=== PATIENT | female | born 1990 | race Caucasian/White ===

== ENCOUNTER → 2017-10-10 | Outpatient (REF) | payer BC | LOC: M WUC 10-11 09:35 | DX: R30.0 Dysuria (principal) | CPT/HCPCS: 87186 ==

== ENCOUNTER → 2019-06-08 | Outpatient (REF) | payer BC ==
[2019-06-08 17:51] LABS: HEMATOCRIT 38.8 % (36.0-47.0); MEAN CORPUSCULAR HEMOGLOBIN 30.7 pg (27.0-33.0); MEAN CORPUSCULAR HGB CONC 33.5 g/dl (32.0-36.5); MEAN CORPUSCULAR VOLUME 91.7 fl (80.0-96.0); PLATELET COUNT, AUTOMATED 212 10^3/uL (150-450); RED BLOOD COUNT 4.23 10^6/uL (4.00-5.40); WHITE BLOOD COUNT 8.7 10^3/uL (4.0-10.0)
[2019-06-09 11:31] LABS: HIV 1&2 SCREEN CENTAUR NEGATIVE (NEGATIVE); RUBELLA IgG QUALITATIVE IMMUNE (IMMUNE)
== END ==
LOC: M PLALAB 14:55
PROVIDERS: ATTEND Advanced Practice Midwife
DX: Z34.01 Encounter for supervision of normal first pregnancy, first trimester (principal); Z3A.00 Weeks of gestation of pregnancy not specified

== ENCOUNTER → 2019-07-07 | Outpatient (REF) | payer BC ==
[2019-07-07 21:02] LABS: CHLAMYDIA DNA AMPLIFICATION NEGATIVE (NEGATIVE); GC DNA AMPLIFICATION NEGATIVE (NEGATIVE)
== END ==
LOC: M SFHCWAGY 17:09
PROVIDERS: ATTEND Advanced Practice Midwife
DX: Z34.01 Encounter for supervision of normal first pregnancy, first trimester (principal)

== ENCOUNTER → 2019-08-28 | Outpatient (CLI) | payer BC ==
--- NOTE | 2019-09-01 08:57 | REP ---
Clinical: Anatomical evaluation. Comparison: None. Findings: Examination demonstrates a single live intrauterine in variable presentation. motion is identified by technologist. Placenta is noted anterior and grade I without evidence for placenta previa or abruption. Amniotic fluid volume is normal. Cervix measures 3.4 cm in length and appears closed. No evidence for nuchal cord. Gestational age by current measurements 18 weeks 2 days with LOREN 01/27/2020 . FHR equals 146 beats per minute. BPD 3.8 cm 17 weeks 4 days HC 15.1 cm 18 weeks 1 day AC 13.2 cm 18 weeks 5 days FL 2.9 cm 18 weeks 5 days HL 2.7 cm 18 weeks 5 days HC/AC ratio 1.14 Estimated weight 247 grams ( 60th percentile). Anatomical assessment demonstrates normal structures including cranium, choroid plexus, cavum, cerebellum/posterior fossa, facial features, lungs, four-chamber heart/ventricular outflow tracts, diaphragm, stomach, cord insertion/three-vessel cord, kidneys/bladder, spine, and extremities. Impression: Single live intrauterine in variable presentation demonstrating appropriate estimated weight. Anatomical assessment is complete and normal. No gross abnormalities are identified. Electronically Signed by Sage Wilson MD 08/28/2019 05:28 P
== END ==
LOC: M WHC 14:49
PROVIDERS: ATTEND Specialist
DX: Z36.3 Encounter for antenatal screening for malformations (principal); Z3A.18 18 weeks gestation of pregnancy

== ENCOUNTER → 2019-10-27 | Outpatient (CLI) | payer BC ==
[2019-10-27 15:36] LABS: HEMATOCRIT 34.5 % (36.0-47.0); HEMOGLOBIN 11.8 g/dl (12.0-15.5); MEAN CORPUSCULAR HEMOGLOBIN 32.8 pg (27.0-33.0); MEAN CORPUSCULAR HGB CONC 34.2 g/dl (32.0-36.5); MEAN CORPUSCULAR VOLUME 95.8 fl (80.0-96.0); PLATELET COUNT, AUTOMATED 204 10^3/uL (150-450); WHITE BLOOD COUNT 10.8 10^3/uL (4.0-10.0)
== END ==
LOC: M LAB 07:35
PROVIDERS: ATTEND Obstetrics & Gynecology
DX: Z34.92 Encounter for supervision of normal pregnancy, unspecified, second trimester (principal); Z3A.00 Weeks of gestation of pregnancy not specified

== ENCOUNTER → 2019-12-09 | Outpatient (REF) | payer BC | LOC: M SFHCWAGY 17:07 | PROVIDERS: ATTEND Advanced Practice Midwife | DX: Z34.03 Encounter for supervision of normal first pregnancy, third trimester (principal) ==

== ENCOUNTER → 2019-12-23 | Outpatient (REF) | payer BC | LOC: M SFHCWAGY 16:58 | PROVIDERS: ATTEND Obstetrics & Gynecology | DX: Z3A.35 35 weeks gestation of pregnancy (principal) ==

== ENCOUNTER 2020-01-20 02:11 | Inpatient (IN) | payer BC ==
[~2020-01-20] VITALS: Ht 162.6 cm; Wt 75.2 kg
[2020-01-20] VITALS (35 sets, daily range): BP systolic 95–174; BP diastolic 52–80
[2020-01-20] MEDS ORDERED: LR 1,000 ML IV SCH ×2 (02:38→07:57)
[2020-01-20] MEDS ORDERED: LACTATED RINGER'S 1000 ML IV STA (02:38)
[2020-01-20 02:50] LABS: HEMATOCRIT 35.8 % (36.0-47.0); HEMOGLOBIN 11.8 g/dl (12.0-15.5); MEAN CORPUSCULAR HEMOGLOBIN 29.9 pg (27.0-33.0); MEAN CORPUSCULAR VOLUME 90.6 fl (80.0-96.0); PLATELET COUNT, AUTOMATED 263 10^3/uL (150-450); RED BLOOD COUNT 3.95 10^6/uL (4.00-5.40); WHITE BLOOD COUNT 17.2 10^3/uL (4.0-10.0)
[2020-01-20] MEDS ORDERED: PREN29CH2 PO (02:56)
--- NOTE | 2020-01-20 03:02 | HPEPDOC ---
Obstetrical History & Physical General Date of Admission Jan 20, 2020 at 02:29 History of Present Illness 29-year-old G1, P0 at 39+6 weeks gestation. Presents with frequent, painful [place] contractions over the past several hours. Denies any loss of fluid or vaginal bleeding. Reports regular movement. 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 BREAST: . ABDOMEN: Gravid and non-tender to touch. FETUS: Is vertex (VTX) by sterile vaginal examination (SVE), fetus is vertex (VTX) by [place]. HEART RATE: Regular rate and rhythm. LUNGS: Clear to auscultation (CTA). EXTREMITIES: No edema. No clonus. Deep tendon reflexes (DTRs) + . Laboratory Data 24H LABS Laboratory Tests 2 01/20/20 02:34: Serology Scanned Report Hepatitis B Testing Vaginal Examination Dilation: 5 cm Effacement: 100% Station: -1, 0 Cervical Consistency: Soft Cervical Position: Anterior Presentation: Cephalic presentation (Membranes intact) Assessment Heart Rate (FHR): 135 Variability: Moderate Accelerations: Positive Decelerations: None Tocometer Contractions: Yes Frequency: every 2-5 min. Assessment/Plan Assessment 29-year old at 39+6 weeks gestation. Dx: Active labor at term. Reassuring maternal and status. Plan Admit and orient. Routine labs/orders Augment labor with Pitocin as needed Mode of delivery plan: ; as indicated. BEVERLEY SMITH DO Jan 20, 2020 03:02
[2020-01-20] MEDS ORDERED: FENTANYL 2MCG/ML ROPIVACAINE 0.2% IN 0.9% NACL 100ML IVBAG As Ordered ONE (03:56)
[2020-01-20] MEDS ORDERED: FENTANYL/ROPIVACAINE/NACL BAG 100 ML EPIDURAL SCH (05:00)
[2020-01-20] MEDS ORDERED: EPIDURAL/PCA KEYS XX PRN (05:00)
[2020-01-20] MEDS ORDERED: LACTATED RINGER'S 1000 ML IV PRN (05:00)
[2020-01-20] MEDS ORDERED: NALOXONE INJ 0.4MG/1ML VIAL (J2310 PER 1MG) IV PRN (05:00)
[2020-01-20] MEDS ORDERED: ONDANSETRON 4MG/2ML VIAL IV PRN (05:00)
[2020-01-20] MEDS ORDERED: EPIDURAL COMMENT XX SCH (05:00)
[2020-01-20] MEDS ORDERED: diphenhydrAMINE 50MG/ML VIAL (J1200) IV PRN (05:00)
[2020-01-20] MEDS ORDERED: ePHEDrine SULFATE 25 MG/5 ML(5MG/ML) SYRINGE IV PRN (05:00)
[2020-01-20] MEDS ORDERED: REFRIGERATOR IV KEYS XX PRN (05:00)
[2020-01-20] MEDS ORDERED: OXYTOCIN DRIP 30 UNITS in IV 1 EA IV SCH ×2 (08:00→11:47)
[2020-01-20] MEDS ORDERED: IBUPROFEN 600MG TAB PO PRN (12:00)
[2020-01-20] MEDS ORDERED: DOCUSATE SODIUM 100 MG CAP PO PRN (12:00)
[2020-01-20] MEDS ORDERED: MEASLES,MUMPS,RUBELLA VACCINE INJ (MMR-II) (90707) SC SCH (12:00)
[2020-01-20] MEDS ORDERED: ACETAMINOPHEN TAB 650MG DOSE (2X325MG) PO PRN (12:00)
[2020-01-20] MEDS ORDERED: DIBUCAINE 1% OINTMENT 30GM TOP PRN (12:00)
[2020-01-20] MEDS ORDERED: RHOGAM 300 MCG (1500 IU) INJ (J2790) IM SCH (12:00)
[2020-01-20] MEDS ORDERED: ACETAMINOPHEN 500 MG TAB PO PRN (12:00)
[2020-01-20] MEDS ORDERED: METHYLERGONOVINE MALEATE 0.2 MG TAB PO PRN (12:00)
[2020-01-20] MEDS: IBUPROFEN 800 MG TAB PO PRN (17:49)
[2020-01-21] MEDS: IBUPROFEN 800 MG TAB PO PRN ×2 (05:53→14:45)
[2020-01-21 06:00] VITALS: BP 107/64
[2020-01-21] MEDS: PRENATAL VITAMINS CHEWABLE TABLET PO SCH (07:37)
[2020-01-21 18:00] VITALS: BP 118/73
[2020-01-22 06:00] VITALS: BP 90/54
--- NOTE | 2020-01-22 07:11 | DS.PDOC ---
Discharge Summary General Date of Admission Jan 20, 2020 at 02:29 Date of Discharge Jan 22, 2020 Discharge Summary PROCEDURES PERFORMED DURING STAY: spontaneous vaginal delivery ADMITTING DIAGNOSES: 1. active labor at term DISCHARGE DIAGNOSES: 1. active labor at term, delivered COMPLICATIONS/CHIEF COMPLAINT: LABOR. HISTORY OF PRESENT ILLNESS/HOSPITAL COURSE: Toña is a 29yo [id number] s/p uncomplicated at 39w6d, delivering at 1030 on 01/19, after presenting in active labor. She has had a benign course. At time of discharge, vitals are wnl, she is afebrile. There is no evidence of infection and she is hemodynamically stable. DISCHARGE MEDICATIONS: Please see below. ALLERGIES: Please see below. PHYSICAL EXAMINATION ON DISCHARGE: VITAL SIGNS: Please see below. GENERAL: patient resting comfortably Abdomen: soft, NTTP, fundus firm at u-2cm Extremities: no pain with palpation of calves LABORATORY DATA: Please see below. ACTIVITY: As tolerated, vaginal rest 6 weeks, no heavy lifting DIET: regular DISPOSITION: home DISCHARGE PLAN/INSTRUCTIONS: 1. Discharge home today 2. Routine visit in 6 weeks 3. Regular diet 4. Undecided on contraception, will readdress at 6wk PP visit 5. Discussed return precautions at length DISCHARGE CONDITION: Stable TIME SPENT ON DISCHARGE: Greater than 20 minutes. Vital Signs/I&Os Vital Signs Date Time Temp Pulse Resp B/P (MAP) Pulse Ox O2 Delivery O2 Flow Rate FiO2 01/21/20 18:00 97.4 65 18 118/73 (88) 01/21/20 06:00 97 Room Air I&O- Last 24 Hours up to 6 AM 01/21/20 06:00 Intake Total 3914.8 ml Output Total 1650 ml Balance 2264.8 ml Discharge Medications Scheduled No115/Iron/Folic Acid ( 19 Chewable Tablet) 1 Each Tab.chew, 1 TAB PO DAILY, (Reported) Allergies Coded Allergies: bee venom protein (honey bee) (Verified Allergy, Severe, anaphylaxis, 01/20/20) Vidya Jones MD Jan 21, 2020 19:34
--- NOTE | 2020-01-22 07:14 | IPNPDOC ---
Progress Note Date of Service: Jan 22, 2020 Day#: 2 Progress Note PPD 2 SUBJECT: Toña is a 29yo [id number] s/p uncomplicated at 39w6d, delivering at 1030 on 01/19, after presenting in active labor, doing well day # 2. She has been ambulating, voiding spontaneously without issue and tolerating regular diet. Breast feeding without issue. Reports lochia is like a normal period. No f/c/n/v/CP/SOB. OBJECTIVE: VITAL SIGNS: Within normal limits, afebrile. Alert and oriented times three. Abdomen: Fundus firm at U-2. Soft, NTTP. Extremities: no pain with palpation of calves ASSESSMENT: Toña is a 29yo [id number] s/p uncomplicated at 39w6d, delivering at 1030 on 01/19, after presenting in active labor, doing well day # 2. Vitals within normal limits, afebrile, hemodynamically stable with no evidence of infection. PLAN: 1. Discharge to home today. 2. Tylenol and Motrin for pain. 3. Encourage breast feeding and ambulation. 4. Condoms for contraception 5. Routine PP visit in 6 weeks in clinic. 6. Discussed return precautions at length. Vidya Jones MD VS, I&O, 24H, Fishbone Vital Signs/I&O Vital Signs Date Time Temp Pulse Resp B/P (MAP) Pulse Ox O2 Delivery O2 Flow Rate FiO2 01/22/20 06:00 97.8 67 18 90/54 (66) 01/21/20 06:00 97 Room Air Vidya Jones MD Jan 22, 2020 07:14
[2020-01-22] MEDS ORDERED: IBUP80TA PO (07:18)
[2020-01-22] MEDS ORDERED: DOCU100C16 PO (07:18)
[2020-01-22] MEDS: PRENATAL VITAMINS CHEWABLE TABLET PO SCH (07:55)
[2020-01-22] MEDS: IBUPROFEN 800 MG TAB PO PRN (07:55)
== END 2020-01-22 12:05 | disposition home or self-care (01) | DRG 560 ==
LOC: M LDO 02:11 → M LDI 02:29 → M OBS 14:03
PROVIDERS: ADMIT Obstetrics & Gynecology; ATTEND Obstetrics & Gynecology
PROC: 10E0XZZ Delivery of Products of Conception, External Approach (ICD-10-PCS; principal; 2020-01-20)
PROC: 0KQM0ZZ Repair Perineum Muscle, Open Approach (ICD-10-PCS; 2020-01-20)
DX: O32.6XX0 Maternal care for compound presentation, not applicable or unspecified (principal); O70.1 Second degree perineal laceration during delivery; Z37.0 Single live birth; Z3A.39 39 weeks gestation of pregnancy

== ENCOUNTER → 2021-02-16 | Outpatient (CLI) | payer BC ==
[~2021-02-16] MED LIST: DOCU100C16 PO; IBUP80TA PO; PREN29CH2 PO
[2021-02-16 09:44] LABS: BASO # 0.1 10^3/uL (0.0-0.2); BASO % 0.9 % (0.0-1.0); EOS # 0.1 10^3/uL (0.0-0.5); EOS % 2.2 % (0.0-3.0); HEMATOCRIT 38.4 % (36.0-47.0); HEMOGLOBIN 12.4 g/dl (12.0-15.5); LYMPH # 1.5 10^3/uL (1.5-5.0); LYMPH % 27.6 % (24.0-44.0); MEAN CORPUSCULAR HEMOGLOBIN 29.5 pg (27.0-33.0); MEAN CORPUSCULAR HGB CONC 32.3 g/dl (32.0-36.5); MEAN CORPUSCULAR VOLUME 91.4 fl (80.0-96.0); MONO # 0.4 10^3/uL (0.0-0.8); MONO % 7.7 % (2.0-8.0); NEUTROPHILS # 3.4 10^3/uL (1.5-8.5); NEUTROPHILS % 61.2 % (36.0-66.0); PLATELET COUNT, AUTOMATED 250 10^3/uL (150-450); WHITE BLOOD COUNT 5.5 10^3/uL (4.0-10.0)
[2021-02-16 10:10] LABS: BLOOD UREA NITROGEN 15 MG/DL (7-18); CALCIUM LEVEL 9.1 MG/DL (8.5-10.1); CARBON DIOXIDE LEVEL 28 MEQ/L (21-32); CHLORIDE LEVEL 107 MEQ/L (98-107); CHOLESTEROL LEVEL 173 MG/DL (<200); CHOLESTEROL RISK RATIO 1.943 (<5); CREATININE FOR GFR 0.85 MG/DL (0.55-1.30); GLOMERULAR FILTRATION RATE > 60.0 (>60); GLUCOSE, FASTING 79 MG/DL (70-100); HDL CHOLESTEROL 89 MG/DL (>40); LDL CHOLESTEROL 78 MG/DL (<100); NON-HDL-C 84 MG/DL; POTASSIUM SERUM 4.2 MEQ/L (3.5-5.1); SODIUM LEVEL 139 MEQ/L (136-145); TRIGLYCERIDES LEVEL 30 MG/DL (<150)
== END ==
LOC: M LAB 09:11
PROVIDERS: ATTEND Registered Nurse
DX: Z00.00 Encounter for general adult medical examination without abnormal findings (principal); Z13.220 Encounter for screening for lipoid disorders

== ENCOUNTER → 2022-07-06 | Outpatient (REF) | payer OTHER | LOC: M LAB REF 12:52 | PROVIDERS: ATTEND Nurse Practitioner Family | DX: N39.0 Urinary tract infection, site not specified (principal) ==

== ENCOUNTER → 2023-01-03 | Outpatient (CLI) | payer OTHER ==
[~2023-01-03] MED LIST changes: +ISOVUE-370 76% 100ML VIAL As Ordered ONE
== END ==
LOC: M RADPRO 12:31
PROVIDERS: ATTEND Obstetrics & Gynecology
DX: Z31.69 Encounter for other general counseling and advice on procreation (principal)
CPT/HCPCS: 58340; 74740; Q9967

== ENCOUNTER → 2023-01-08 | Outpatient (CLI) | payer OTHER ==
[~2023-01-08] MED LIST changes: -ISOVUE-370 76% 100ML VIAL As Ordered ONE
== END ==
LOC: M WHC 14:31
PROVIDERS: ATTEND Obstetrics & Gynecology
DX: Z31.69 Encounter for other general counseling and advice on procreation (principal); N83.201 Unspecified ovarian cyst, right side

== ENCOUNTER → 2023-05-17 | Outpatient (CLI) | payer OTHER | LOC: M LAB 17:55 | PROVIDERS: ATTEND Obstetrics & Gynecology | DX: O20.9 Hemorrhage in early pregnancy, unspecified (principal) ==

== ENCOUNTER → 2023-10-29 | Outpatient (CLI) | payer OTHER ==
[2023-10-29 14:00] LABS: HEMATOCRIT 37.5 % (36.0-47.0); HEMOGLOBIN 12.6 g/dl (12.0-15.5); MEAN CORPUSCULAR HEMOGLOBIN 30.9 pg (27.0-33.0); MEAN CORPUSCULAR HGB CONC 33.6 g/dl (32.0-36.5); MEAN CORPUSCULAR VOLUME 91.9 fl (80.0-96.0); PLATELET COUNT, AUTOMATED 228 10^3/uL (150-450); RED BLOOD COUNT 4.08 10^6/uL (4.00-5.40); WHITE BLOOD COUNT 11.2 10^3/uL (4.0-10.0)
[2023-10-29 15:00] LABS: HIV 1&2 SCREEN NEGATIVE (NEGATIVE)
[2023-10-29 15:05] LABS: GC DNA AMPLIFICATION NEGATIVE (NEGATIVE)
[2023-10-29 15:08] LABS: HEPATITIS C VIRUS ABY INDEX < 0.02 INDEX (<0.8)
== END ==
LOC: M PLALAB 09:19
PROVIDERS: ATTEND Nurse Practitioner Women's Health
DX: Z34.80 Encounter for supervision of other normal pregnancy, unspecified trimester (principal)

== ENCOUNTER → 2023-11-29 | Outpatient (REF) | payer OTHER | LOC: M PLALAB 15:54 | PROVIDERS: ATTEND Advanced Practice Midwife | DX: Z34.82 Encounter for supervision of other normal pregnancy, second trimester (principal) ==

== ENCOUNTER → 2023-12-27 | Outpatient (CLI) | payer OTHER | LOC: M WHC 12:57 | PROVIDERS: ATTEND Advanced Practice Midwife | DX: Z34.82 Encounter for supervision of other normal pregnancy, second trimester (principal); Z3A.20 20 weeks gestation of pregnancy ==

== ENCOUNTER → 2024-02-12 | Outpatient (CLI) | payer OTHER ==
[2024-02-12 15:25] LABS: HEMATOCRIT 32.8 % (36.0-47.0); HEMOGLOBIN 11.1 g/dl (12.0-15.5); MEAN CORPUSCULAR HEMOGLOBIN 31.3 pg (27.0-33.0); MEAN CORPUSCULAR HGB CONC 33.8 g/dl (32.0-36.5); MEAN CORPUSCULAR VOLUME 92.4 fl (80.0-96.0); PLATELET COUNT, AUTOMATED 225 10^3/uL (150-450); RED BLOOD COUNT 3.55 10^6/uL (4.00-5.40); WHITE BLOOD COUNT 11.8 10^3/uL (4.0-10.0)
[2024-02-12 15:28] LABS: GLUCOSE CHALLENGE TEST 1 HOUR 109 MG/DL (LESS THAN 140)
[2024-02-12 16:03] LABS: HIV 1&2 SCREEN NEGATIVE (NEGATIVE)
[2024-02-12 16:10] LABS: HEPATITIS C VIRUS ABY INDEX < 0.02 INDEX (<0.8)
[2024-02-12 16:46] LABS: GC DNA AMPLIFICATION NEGATIVE (NEGATIVE)
== END ==
LOC: M PLALAB 12:56
PROVIDERS: ATTEND Nurse Practitioner Family
DX: Z34.82 Encounter for supervision of other normal pregnancy, second trimester (principal)

== ENCOUNTER → 2024-04-21 | Outpatient (REF) | payer OTHER | LOC: M SFHCWAGY 09:40 | PROVIDERS: ATTEND Obstetrics & Gynecology | DX: Z36.85 Encounter for antenatal screening for Streptococcus B (principal); Z3A.36 36 weeks gestation of pregnancy ==

== ENCOUNTER 2024-05-08 09:15 | Inpatient (IN) | payer OTHER ==
[~2024-05-08] VITALS: Ht 162.6 cm; Wt 77.9 kg
[2024-05-08] VITALS (35 sets, daily range): BP systolic 97–139; BP diastolic 52–85; O2SAT 95
[2024-05-08] MEDS ORDERED: HOME MED LIST COMPLETE! XX SCH (09:55)
[2024-05-08 10:33] LABS: HEMATOCRIT 34.1 % (36.0-47.0); HEMOGLOBIN 11.7 g/dl (12.0-15.5); MEAN CORPUSCULAR HGB CONC 34.3 g/dl (32.0-36.5); MEAN CORPUSCULAR VOLUME 90.5 fl (80.0-96.0); PLATELET COUNT, AUTOMATED 230 10^3/uL (150-450); RED BLOOD COUNT 3.77 10^6/uL (4.00-5.40); WHITE BLOOD COUNT 10.9 10^3/uL (4.0-10.0)
[2024-05-08 10:57] LABS: HEPATITIS B SURFACE ANTIBODY POSITIVE (POSITIVE)
[2024-05-08] MEDS ORDERED: CARBOPROST TROMETHAMINE 250 MCG/ML AMP IM PRN (11:20)
[2024-05-08] MEDS ORDERED: METHYLERGONOVINE MALEATE 0.2MG/ML 1ML VIAL IM PRN (11:20)
[2024-05-08] MEDS ORDERED: TRANEXAMIC ACID INJection 1,000 MG in NS 100 ML IV PRN (11:20)
[2024-05-08] MEDS ORDERED: LIDOCAINE 1% MDV 20ML VIAL INFIL PRN (11:20)
[2024-05-08] MEDS ORDERED: OXYTOCIN DRIP 30 UNITS in IV 1 EA IV PRN (11:20)
[2024-05-08 11:22] LABS: HIV 1&2 SCREEN NEGATIVE (NEGATIVE)
[2024-05-08 11:29] LABS: HEPATITIS C VIRUS ABY INDEX 0.02 INDEX (<0.8)
[2024-05-08] MEDS: OXYTOCIN DRIP 30 UNITS in IV 1 EA IV SCH ×2 (11:54→20:15)
[2024-05-08] MEDS ORDERED: LR 500 ML IV PRN (15:20)
[2024-05-08] MEDS ORDERED: diphenhydrAMINE 50MG/ML VIAL IV PRN (15:20)
[2024-05-08] MEDS ORDERED: ePHEDrine SULFATE 25 MG/5 ML(5MG/ML) SYRINGE IVP PRN (15:20)
[2024-05-08] MEDS ORDERED: EPIDURAL/PCA KEYS XX PRN (15:20)
[2024-05-08] MEDS ORDERED: NALOXONE INJ 0.4MG/1ML VIAL IV PRN (15:20)
[2024-05-08] MEDS: LACTATED RINGER'S 1000 ML IV STA (15:30)
[2024-05-08] MEDS: LR 1,000 ML IV SCH (15:31)
[2024-05-08] MEDS: FENTANYL/ROPIVACAINE/NACL BAG 100 ML EPIDURAL SCH (15:54)
[2024-05-08] MEDS: ONDANSETRON 4MG 2ML VIAL IV PRN (19:22)
[2024-05-08] MEDS ORDERED: ONDANSETRON 4MG 2ML VIAL IV PRN (20:15)
[2024-05-08] MEDS ORDERED: IBUPROFEN 600MG TAB PO PRN (20:15)
[2024-05-08] MEDS ORDERED: RHOGAM 300MCG (1500IU) INJ IM SCH (20:15)
[2024-05-08] MEDS ORDERED: CALCIUM CARBONATE 500 MG CHEW U/D PO PRN (20:15)
[2024-05-08] MEDS ORDERED: ACETAMINOPHEN 500 MG TAB PO PRN (20:15)
[2024-05-08] MEDS ORDERED: ANUSOL HC CREAM 30GM TOP PRN (20:15)
[2024-05-08] MEDS ORDERED: ACETAMINOPHEN 325 MG TAB PO PRN (20:15)
[2024-05-08] MEDS ORDERED: LR 1,000 ML IV SCH (20:15)
[2024-05-08] MEDS: IBUPROFEN 800 MG TAB PO PRN (23:59)
[2024-05-09] MEDS: DIBUCAINE 1% OINTMENT 30GM TOP PRN
[2024-05-09 05:42] VITALS: BP 112/65; O2SAT 98
[2024-05-09] MEDS: DOCUSATE SODIUM 100MG CAPSULE PO PRN (07:14)
[2024-05-09] MEDS: PRENATAL VITAMINS CHEWABLE TABLET PO SCH (07:14)
[2024-05-09 18:00] VITALS: BP 110/62; O2SAT 98
[2024-05-10 06:00] VITALS: BP 113/61; O2SAT 100
[2024-05-10] MEDS: MEASLES,MUMPS,RUBELLA VACCINE INJ (MMR-II) SC.IMMUN ONE (09:00)
== END 2024-05-10 13:30 | disposition home or self-care (01) | DRG 807 ==
LOC: M LDO 09:15 → M LDI 09:43 → M OBS 23:52
PROVIDERS: ADMIT Obstetrics & Gynecology; ATTEND Obstetrics & Gynecology
PROC: 10E0XZZ Delivery of Products of Conception, External Approach (ICD-10-PCS; principal; 2024-05-08)
PROC: 0KQM0ZZ Repair Perineum Muscle, Open Approach (ICD-10-PCS; 2024-05-08)
DX: O70.1 Second degree perineal laceration during delivery (principal); Z37.0 Single live birth; Z3A.39 39 weeks gestation of pregnancy